=== PATIENT | male | born 1930 | race Hispanic/Latino ===

== ENCOUNTER 2017-03-17 07:15 | Emergency (ER) | payer MEDICARE ==
[2017-03-17 07:15] VITALS: BMI 30.4
[2017-03-17 07:34] VITALS: RESP 18; TEMP 97.8
--- NOTE | 2017-03-17 07:36 | ED PDOC ---
Arrival/HPI - General Chief Complaint: Lower Extremity Problem/Injury Time Seen by Provider: 03/17/17 07:28 Historian: Patient - History of Present Illness Narrative History of Present Illness (Text): 03/17/17 07:36 A 86 year old male, whose past medical history includes 2 cardiac stents, ID, and PE on Eliquis, presents to the emergency department complaining of pain and numbness to left foot since yesterday. Patient reports his symptoms have improved since and currently complains of numbness to his left toes. He describes it as a tingling sensation. Patient denies any fever, chills, nausea, vomiting, abdominal pain, chest pain, shortness of breath or any other complaints. PMD: Dr. Meraz Time/Duration: Other (yesterday) Symptom Course: Improving Quality: Other Context: Home Past Medical History - Provider Review Nursing Documentation Reviewed: Yes - Cardiac Hx Cardiac Disorders: Yes Hx ID: Yes (2004) Hx Hypertension: Yes Hx Pacemaker: No - Pulmonary Hx Respiratory Disorders: Yes Hx Pulmonary Embolism: Yes - Neurological Hx Neurological Disorder: No Hx Paralysis: No - HEENT Hx HEENT Disorder: No - Renal Hx Renal Disorder: No - Endocrine/Metabolic Hx Endocrine Disorders: No - Hematological/Oncological Hx Blood Disorders: No Hx Blood Transfusions: No - Integumentary Hx Dermatological Disorder: No - Musculoskeletal/Rheumatological Hx Musculoskeletal Disorders: No - Gastrointestinal Hx Gastrointestinal Disorders: No - Genitourinary/Gynecological Hx Genitourinary Disorders: No - Psychiatric Hx Psychophysiologic Disorder: No Hx Emotional Abuse: No Hx Physical Abuse: No Hx Substance Use: No - Surgical History Other/Comment: vein removal LLE - Anesthesia Hx Anesthesia Reactions: No Hx Malignant Hyperthermia: No - Suicidal Assessment Feels Threatened In Home Enviroment: No Family/Social History - Physician Review Nursing Documentation Reviewed: Yes Family/Social History: No Known Family HX Smoking Status: Never Smoked Hx Alcohol Use: No Hx Substance Use: No Allergies/Home Meds Allergies/Adverse Reactions: Allergies No Known Allergies Allergy (Verified 03/17/17 07:30) Home Medications: Home Meds Medication Instructions Recorded Confirmed Finasteride 5 mg PO QAM 02/17/14 03/17/17 Tamsulosin [Flomax] 0.4 mg PO QPM 02/17/14 03/17/17 Carvedilol [Coreg] 3.125 mg PO BID 02/19/14 03/17/17 Furosemide [Lasix] 40 mg PO DAILY 02/19/14 03/17/17 Apixaban [Eliquis] 5 mg PO BID 12/31/14 03/17/17 Losartan [Cozaar] 25 mg PO DAILY 12/31/14 03/17/17 Aspirin [Ecotrin] 81 mg PO DAILY 03/17/17 03/17/17 Atorvastatin [Lipitor] 20 mg PO DAILY 03/17/17 03/17/17 Levothyroxine [Synthroid] 1 tab PO DAILY 03/17/17 03/17/17 Spironolactone [Aldactone] 25 mg PO DAILY 03/17/17 03/17/17 Sulfasalazine [Azulfidine] 500 mg PO QID 03/17/17 03/17/17 Review of Systems - Physician Review All systems were reviewed & negative as marked: Yes - Review of Systems Constitutional: absent: Fevers, Night Sweats Respiratory: absent: SOB Cardiovascular: absent: Chest Pain Gastrointestinal: absent: Abdominal Pain, Nausea, Vomiting Neurological: Other (numbing sensation in left toes) Physical Exam Vital Signs Reviewed: Yes Vital Signs Temp Pulse Resp BP Pulse Ox 03/17/17 08:12 66 18 139/66 95 03/17/17 07:28 97.8 F 69 18 159/77 H 98 Temperature: Afebrile Blood Pressure: Hypertensive Pulse: Regular Respiratory Rate: Normal Appearance: Positive for: Well-Appearing, Non-Toxic, Comfortable Pain Distress: None Mental Status: Positive for: Alert and Oriented X 3 - Systems Exam Head: Present: Atraumatic, Normocephalic Pupils: Present: PERRL Extroacular Muscles: Present: EOMI Conjunctiva: Present: Normal Mouth: Present: Moist Mucous Membranes Neck: Present: Normal Range of Motion Respiratory/Chest: Present: Clear to Auscultation, Good Air Exchange. No: Respiratory Distress, Accessory Muscle Use Cardiovascular: Present: Regular Rate and Rhythm, Normal S1, S2. No: Murmurs Abdomen: Present: Normal Bowel Sounds. No: Tenderness, Distention, Peritoneal Signs Back: Present: Normal Inspection Upper Extremity: Present: Normal Inspection. No: Cyanosis, Edema Lower Extremity: Present: NORMAL PULSES (Excellent Dorsal Pedal Pulse and Posterior Tibial Artery), Normal ROM, Temperature Abnormalties (bilateral feet warm), Other (5/5 strength). No: Edema, CALF TENDERNESS, Law's Sign, Tenderness, Swelling, Erythema, Deformity, Neurovascularly Intact (decreased sensation to left foot) Neurological: Present: GCS=15, CN II-XII Intact, Speech Normal Skin: Present: Warm, Dry, Normal Color. No: Rashes Psychiatric: Present: Alert, Oriented x 3, Normal Insight, Normal Concentration Medical Decision Making ED Course and Treatment: 03/17/17 07:36 Impression: A 86 year old male with numbness to left toes. On exam, sensation diminished in left toes, good pedal pulses, 5/5 strength, no tenderness or redness. r/o DVT Plan: -- Duplex lower extremity ultrasound -- Labs -- Reassess and disposition Progress Notes: 03/17/17 08:15 Spoke with premises technician Nazir who states negative for DVT. Labs reviewed, which show normal results. I have discussed the results and plan with the patient, who expresses understanding. Patient in agreement with plan to be discharged home. Patient is stable for discharge. Patient was instructed to follow up with physician or return if symptoms worsen or new concerning symptoms arise. - Lab Interpretations Lab Results: 03/17/17 07:48 03/17/17 07:48 Lab Results 03/17/17 07:48: Sodium 143, Potassium 4.0, Chloride 101, Carbon Dioxide 29, Anion Gap 17, BUN 20, Creatinine 1.1, Est GFR ( Amer) > 60, Est GFR (Non- Af Amer) > 60, Random Glucose 126 H, Calcium 9.6 03/17/17 07:48: PT 12.4 H, INR 1.15 H, APTT 28.2 03/17/17 07:48: WBC 5.2, RBC 4.20, Hgb 13.2 L, Hct 40.3 L, MCV 96.0, MCH 31.4, MCHC 32.8, RDW 13.6, Plt Count 194, MPV 9.4, Gran % 58.0, Lymph % (Auto) 27.1, Mcnairy % (Auto) 10.9 H, Eos % (Auto) 3.6, Baso % (Auto) 0.4, Gran # 3.02, Lymph # 1.4, Mcnairy # 0.6, Eos # 0.2, Baso # 0.02 I have reviewed the lab results: Yes - RAD Interpretation Radiology Orders: 03/17/17 07:40 DUPLEX LOWER EXTRM VEIN LEFT [US] Stat - Scribe Statement The provider has reviewed the documentation as recorded by the Scribe Sharon Troy Provider Scribe Attestation: All medical record entries made by the Scribe were at my direction and personally dictated by me. I have reviewed the chart and agree that the record accurately reflects my personal performance of the history, physical exam, medical decision making, and the department course for this patient. I have also personally directed, reviewed, and agree with the discharge instructions and disposition. Disposition/Present on Arrival - Present on Arrival Any Indicators Present on Arrival: Yes History of DVT/PE: Yes History of Uncontrolled Diabetes: No Urinary Catheter: No History of Decub. Ulcer: No History Surgical Site Infection Following: None - Disposition Have Diagnosis and Disposition been Completed?: Yes Diagnosis: Foot pain Disposition: HOME/ ROUTINE Disposition Time: 08:15 Patient Plan: Discharge Patient Problems: Current Active Problems Problem Status Onset Foot pain Acute Condition: GOOD Discharge Instructions (ExitCare): Paresthesia (ED), Arthralgia (ED) Additional Instructions: Mr Alva, thank you for letting us take care of you today. Your provider was Dr. Whatley. You were treated for Foot Pain and Toe Numbness. The emergency medical care you received today was directed at your acute symptoms. If you were prescribed any medication, please fill it and take as directed. It may take several days for your symptoms to resolve. Return to the Emergency Department if your symptoms worsen, do not improve, or if you have any other problems. Please contact your doctor or call one of the physicians/clinics you have been referred to that are listed on the Patient Visit Information form that is included in your discharge packet. Bring any paperwork you were given at discharge with you along with any medications you are taking to your follow up visit. Our treatment cannot replace ongoing medical care by a primary care provider (PCP) outside of the emergency department. Thank you for allowing the [facility] team to be part of your care today. If you had an X-Ray or CT scan: A Radiologist will review the ED reading if any change in treatment is needed we will contact you. If you had a blood, urine, or wound culture: It will take several days for the results, if any change in treatment is needed we will contact you. If you had an STI test: It will take 48 hours for the results. Please call after 1 week if you have not heard back. Referrals: Satya Meraz MD [Primary Care Provider] - Follow up with primary Forms: [facility] ([place])
[2017-03-17 07:56] LABS: BASO # 0.02 K/mm3 (0.0-2.0); BASO % 0.4 % (0.0-3.0); EOS # 0.2 (0.0-0.7); EOS % 3.6 % (1.5-5.0); GRAN # 3.02 (1.4-6.5); HEMATOCRIT 40.3 % (42.0-52.0); LYMPH # 1.4 (1.2-3.4); LYMPH % 27.1 % (22.0-35.0); MEAN CORPUSCULAR HEMOGLOBIN 31.4 pg (25.0-35.0); MEAN CORPUSCULAR HGB CONC 32.8 g/dl (31.0-37.0); MEAN PLATELET VOLUME 9.4 fl (7.0-11.0); MONO # 0.6 (0.1-0.6); MONO % 10.9 % (1.0-6.0); RED CELL DISTRIBUTION WIDTH 13.6 % (11.5-14.5); WHITE BLOOD COUNT 5.2 10^3/ul (4.5-11.0)
[2017-03-17 08:07] LABS: BLOOD UREA NITROGEN 20 mg/dL (7-21); CALCIUM 9.6 mg/dL (8.4-10.5); CARBON DIOXIDE 29 mmol/L (21-33); CHLORIDE 101 mmol/L (98-107); GFR AFRICAN-AMERICAN > 60; GLUCOSE,RANDOM 126 mg/dL (70-110); SODIUM 143 mmol/L (132-148)
[2017-03-17 08:09] LABS: INR 1.15 (0.93-1.08); PARTIAL THROMBOPLASTIN TIME 28.2 Seconds (23.7-30.8)
[2017-03-17 08:14] VITALS: BP 139/66; PULSE 66; O2SAT 95
--- NOTE | 2017-03-17 15:18 | US ---
PROCEDURE: Left lower extremity venous US HISTORY: Leg pain and swelling. Evaluate for DVT. PHYSICIAN(S): Eric Arora MD. TECHNIQUE: Duplex sonography and color-flow Doppler with graded compression were used to evaluate the deep venous system of the left lower extremity. FINDINGS: The visualized deep venous system of the left lower extremity is sonographically normal and compressible. Normal wave forms and augmentation are seen. There is no sonographic evidence for deep venous thrombosis in the visualized segments of the left lower extremity. IMPRESSION: 1. No sonographic evidence for deep venous thrombosis in the visualized segments of the left lower extremity.
== END 2017-03-17 08:52 | disposition home or self-care (01) ==
LOC: ED 07:15
DX: M79.672 Pain in left foot (principal); R20.2 Paresthesia of skin; I25.2 Old myocardial infarction; I10 Essential (primary) hypertension; Z86.711 Personal history of pulmonary embolism; Z79.01 Long term (current) use of anticoagulants